=== PATIENT | male | born 1945 | race Asian ===

== ENCOUNTER 2021-12-17 17:10 | Emergency (ER) | payer OTHER ==
[2021-12-17 17:17] VITALS: BP 132/71; PULSE 78; TEMP 98.1; BMI 23.3
[2021-12-17 18:20] LABS: EPI CELLS 1 /uL (0-25.1); HYALINE CASTS 0 /uL (0-3.1); PH,URINE 5.5 (5.0-8.0); URINE APPEARANCE CLEAR; URINE BACTERIA 11 /uL (0-1359); URINE BILIRUBIN NEGATIVE (NEGATIVE); URINE COLOR YELLOW; URINE GLUCOSE (UA) TRACE (NEGATIVE); URINE KETONE NEGATIVE (NEGATIVE); URINE LEUK ESTERASE NEGATIVE (NEGATIVE); URINE NITRITE NEGATIVE (NEGATIVE); URINE PROTEIN TRACE (NEGATIVE); URINE RBC 11 /uL (0-23.9); URINE WBC 1 /uL (0-25.8)
[2021-12-17] MEDS ORDERED: SODIUM CHLORIDE 1,000 ML IV STA (18:35)
[2021-12-17 18:45] LABS: BASO % 0.4 % (0-2.0); EOS % 1.4 % (0-4.5); HEMATOCRIT 39.5 % (35.4-49); LYMPH % 18.7 % (8-40); MCH 32.6 pg (25.7-33.7); MCHC 35.4 g/dl (32.0-35.9); MEAN CELL VOLUME 92.2 fl (80-96); MEAN PLT VOLUME 9.2 fl (7.5-11.1); MONO % 17.5 % (3.8-10.2); PLATELET COUNT 109 10^3/uL (134-434); RBC 4.28 M/mm3 (4.00-5.60); WHITE BLOOD COUNT 4.7 K/mm3 (4.0-10.0)
[2021-12-17 19:33] LABS: CHLORIDE 104 mmol/L (98-107); SODIUM 133 mmol/L (136-145)
[2021-12-17 19:35] LABS: CALCIUM 8.5 mg/dL (8.5-10.1)
[2021-12-17 19:36] LABS: ALBUMIN 3.2 g/dl (3.4-5.0); BLOOD UREA NITROGEN 13.3 mg/dL (7-18); CO2 24 mmol/L (21-32); GLUCOSE,RANDOM 121 mg/dL (74-106); LIPASE 95 U/L (73-393); MAGNESIUM 2.4 mg/dL (1.8-2.4)
[2021-12-17 19:40] LABS: BILIRUBIN,TOTAL 1.8 mg/dL (0.2-1); TOT PROT 7.8 g/dl (6.4-8.2)
[2021-12-17 19:42] LABS: ALK PHOS 70 U/L (45-117)
[2021-12-17 19:45] LABS: ALBUMIN 3.4 g/dl (3.4-5.0); CALCIUM 8.6 mg/dL (8.5-10.1)
[2021-12-17 19:48] LABS: CREATININE 0.9 mg/dL (0.55-1.3)
[2021-12-17 19:50] LABS: BILIRUBIN,TOTAL 1.8 mg/dL (0.2-1); TOT PROT 6.7 g/dl (6.4-8.2)
[2021-12-17 19:53] LABS: ANION GAP 4 MMOL/L (8-16); SGOT/AST 195 U/L (15-37); SGPT/ALT 130 U/L (13-61)
[2021-12-17 20:06] LABS: ANISOCYTOSIS 1+; MACROCYTOSIS 0
== END 2021-12-17 21:54 | disposition home or self-care (01) ==
LOC: JER 17:10
DX: K40.90 Unilateral inguinal hernia, without obstruction or gangrene, not specified as recurrent (principal); R19.7 Diarrhea, unspecified; R14.2 Eructation
CPT/HCPCS: 36415; 74176-TC; 80053; 81003; 83605; 83690; 83735; 84484; 85025; 93005; 93010; 99285-25